=== PATIENT | male | born 1970 | race Caucasian/White ===

== ENCOUNTER 2018-07-02 23:04 | Emergency (ER) | payer OTHER ==
[~2018-07-02] VITALS: Ht 175.3 cm; Wt 72.6 kg
[~2018-07-02 23:04] MED LIST: CELEXA 10 MG TA10 M1 PO; CLARITIN-D 12 H1 TA1 PO; CLONAZEPAM 0.50.5 M1; DAY TIME COLD-237 ML PO; IBUPROFEN 200200 M1 PO; IBUPROFEN 800800 M1 PO; MEDROL DOSPAK21 TAB PO; RESTORIL15 MG PO; SERTRALINE HCL100 MG PO; TESSALON PERLE100 MG PO; ZYRTEC10 M2 PO; [UNRECOGNIZED DRUG - REMARK]
[2018-07-03 01:31] VITALS: BP 116/70
== END 2018-07-03 01:32 | disposition home or self-care (01) ==
LOC: ER 23:04
DX: S01.01XA Laceration without foreign body of scalp, initial encounter (principal); S16.1XXA Strain of muscle, fascia and tendon at neck level, initial encounter; Z90.49 Acquired absence of other specified parts of digestive tract; W22.8XXA Striking against or struck by other objects, initial encounter; Y92.89 Other specified places as the place of occurrence of the external cause; Y93.89 Activity, other specified; Y99.8 Other external cause status

== ENCOUNTER 2020-03-13 19:31 | Emergency (ER) | payer OTHER ==
[~2020-03-13] VITALS: Ht 175.3 cm; Wt 79.4 kg
[2020-03-13 20:42] LABS: ABSOLUTE NEUTROPHILS 5.7 thou/uL (1.4-8.2); BASOPHILS 0.6 % (0.0-2.0); EOSINOPHILS 1.3 % (0.0-3.0); HEMOGLOBIN 13.7 gm/dL (14.0-18.0); LYMPHOCYTES 23.6 % (24.0-44.0); MCH 28.7 pg (26.0-34.0); MCHC 34.3 g/dL (28.0-37.0); MCV 83.6 fL (80.0-100.0); MONOCYTES 6.3 % (1.0-8.0); PLATELET COUNT 242 thou/uL (150-400); POLYS 68.2 % (36.0-66.0); RBC 4.79 mil/uL (4.50-6.00); RDW 13.2 % (10.5-14.5); WBC 8.3 thou/uL (4.0-11.0)
[2020-03-13 20:49] LABS: CALCIUM 8.9 mg/dL (8.5-10.1); CREATININE 1.1 mg/dL (0.7-1.3); POTASSIUM 4.2 mmol/L (3.5-5.1)
[2020-03-13 20:55] LABS: ALBUMIN 4.1 g/dL (3.4-5.0); TOTAL BILIRUBIN 0.4 mg/dL (0.2-1.0); TOTAL PROTEIN 7.5 g/dL (6.4-8.2)
[2020-03-13] MEDS ORDERED: MECLIZINE HCL25 M1 PO (22:53)
[2020-03-13 23:05] VITALS: BP 122/80
--- NOTE | 2020-03-14 11:53 | EKG ---
[facility] [place] [address] ELECTROCARDIOGRAM REPORT Name: IDALIA COTA Room #: DEP [facility]#: [id number] Admission: 03/13/20 Attend Phys: Discharge: 03/13/20 Date of : 68 Report #: [id number] THIS REPORT FOR: cc: Lisa Gillespie Christine L. DO Lundgren, Craig H. 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: [facility] : 1970 Requested By: Andrey Mancia Order Number: [id number] MD: Kings Grover Measurements Intervals [place] Rate: 52 P: 54 HI: 152 QRS: 34 QRSD: 83 T: 37 QT: 444 QTc: 413 Interpretive Statements Sinus bradycardia Otherwise normal tracing Compared to ECG 05/04/2012 06:42:53 No significant changes Electronically Signed On 03-14-2020 11:52:46 CDT by Kings Grover [email or web address] <ELECTRONICALLY SIGNED> By: Kings Grover MD, FACC 03/14/20 1152 45 45 Kings Grover MD, [facility] /EPI
== END 2020-03-13 23:05 | disposition home or self-care (01) ==
LOC: ER 19:31
PROVIDERS: Emergency Medicine
DX: H81.90 Unspecified disorder of vestibular function, unspecified ear (principal); Z90.49 Acquired absence of other specified parts of digestive tract; Z79.1 Long term (current) use of non-steroidal anti-inflammatories (NSAID)

== ENCOUNTER 2021-06-20 04:08 | Emergency (ER) | payer OTHER ==
[~2021-06-20] VITALS: Ht 175.3 cm; Wt 77.1 kg
[~2021-06-20 04:08] MED LIST changes: +MECLIZINE HCL25 M1 PO
[2021-06-20 05:23] VITALS: BP 138/86
== END 2021-06-20 05:26 | disposition home or self-care (01) ==
LOC: ER 04:08
PROVIDERS: Emergency Medicine
DX: B34.9 Viral infection, unspecified (principal); Z20.822 Contact with and (suspected) exposure to COVID-19; R05.9 Cough, unspecified; J02.9 Acute pharyngitis, unspecified; Z90.49 Acquired absence of other specified parts of digestive tract; Z79.899 Other long term (current) drug therapy